=== PATIENT | female | born 1945 | race Caucasian/White ===

== ENCOUNTER 2017-11-13 11:01 | Inpatient (IN) ==
[2017-11-13 12:25] LABS: Basophils # 0.1 10*3/uL (0.0-0.2); Basophils % 0.5 % (0.0-0.8); Eosinophils # 0.3 10*3/uL (0.0-0.87); Eosinophils % 2.3 % (0.00-10.9); Hematocrit 37.9 VOL% (35.7-47.0); Hemoglobin 12.8 GM/DL (12.0-16.0); Immature Granulocytes % 0.4 %; Immature Granulocytes Absolute 0.04 #; Lymphocytes # 1.9 10*3/uL (1.4-4.0); Lymphocytes % 17.7 % (21.3-54.2); Mean Corpuscular HGB Conc 33.8 GM/DL (32-36); Mean Corpuscular Hemoglobin 31 PG (27-34); Mean Corpuscular Volume 92.2 FL (87-102); Monocytes # 1.1 10*3/uL (0.11-0.8); Monocytes % 10.7 % (1.7-12.7); Neutrophils # 7.3 10*3/uL (1.4-7.4); Neutrophils % 68.4 % (38.7-73.9); Platelet Count 431 T/CUMM (130-400); Red Blood Count 4.11 MC/CUMM (3.8-5.5); Red Cell Distribution Width 13.2 % (9.3-17.3); White Blood Count 10.7 T/CUMM (4-12)
[2017-11-13 12:48] LABS: Albumin 2.7 G/DL (3.4-5.0); Bilirubin,Total 0.6 MG/DL (0.2-1.0); CKMB % 2.9 %; Calcium 8.6 MG/DL (8.5-10.1); Potassium 4.2 MMOL/L (3.5-5.1); Total Protein 6.1 G/DL (6.4-8.3)
[2017-11-13 13:05] LABS: Apearance,Urine CLOUDY (Clear); Bacteria,Urine Many /HPF (Few); Bilirubin,Urine Negative (Negative); Blood, Urine Small mg/dL (Negative); Glucose,Urine (UA) Negative (Negative); Hyaline Casts,Urine 18 /LPF (0-3); Ketones,Urine Negative (Negative); Mucus,Urine Many /LPF (Occasional); Nitrite,Urine Positive (Negative); Protein,Urine 30 MG/DL; RBC,Urine 17 /HPF (0-4); Squamous Epithelial Cell,Urine Occasional /HPF (0-10); Urine Color Yellow (Yellow); WBC,Urine 116 /HPF (0-6)
[2017-11-13] MEDS ORDERED: LEVOFLOXACIN INJ 750 MG in PREMIX 1 EACH IV STA (13:09)
[2017-11-13] MEDS ORDERED: NICOTINE 21 MG/24 HR PATCH TRANSDERM PRN (14:36)
[2017-11-13] MEDS ORDERED: hydrALAZINE 20 MG/1 ML VIAL IV PRN (14:38)
[2017-11-13 14:55] LABS: Risk Ratio 3.25; VLDL CHOLESTEROL 22.8 MG/DL
[2017-11-13] MEDS: LEVOFLOXACIN INJ 500 MG in PREMIX 1 EACH IV SCH (17:17)
[2017-11-13] MEDS: SODIUM CHLORIDE 0.45% 1,000 ML IV SCH (17:18)
[2017-11-13] MEDS: ENOXAPARIN 40 MG/0.4 ML SYRINGE SUBCUT SCH (17:21)
[2017-11-13] MEDS: ALBUTEROL/IPRATROPIUM 3 ML NEB RESP TX SCH (20:43)
[2017-11-14] MEDS: ALBUTEROL/IPRATROPIUM 3 ML NEB RESP TX SCH ×4 (00:37→12:10)
[2017-11-14 06:21] LABS: Basophils % 0.4 % (0.0-0.8); Eosinophils # 0.2 10*3/uL (0.0-0.87); Eosinophils % 1.8 % (0.00-10.9); Hematocrit 34.7 VOL% (35.7-47.0); Hemoglobin 11.6 GM/DL (12.0-16.0); Immature Granulocytes % 0.4 %; Immature Granulocytes Absolute 0.04 #; Lymphocytes # 2.2 10*3/uL (1.4-4.0); Lymphocytes % 20.3 % (21.3-54.2); Mean Corpuscular HGB Conc 33.4 GM/DL (32-36); Mean Corpuscular Hemoglobin 31 PG (27-34); Mean Corpuscular Volume 92.3 FL (87-102); Mean Platelet Volume 10.6 FL (9.6-12.0); Monocytes # 1.3 10*3/uL (0.11-0.8); Monocytes % 12.5 % (1.7-12.7); Neutrophils # 6.9 10*3/uL (1.4-7.4); Neutrophils % 64.6 % (38.7-73.9); Platelet Count 399 T/CUMM (130-400); Red Blood Count 3.76 MC/CUMM (3.8-5.5); Red Cell Distribution Width 13.3 % (9.3-17.3); White Blood Count 10.7 T/CUMM (4-12)
[2017-11-14 06:54] LABS: Albumin 2.4 G/DL (3.4-5.0); Bilirubin,Total 0.8 MG/DL (0.2-1.0); Calcium 9.1 MG/DL (8.5-10.1); Osmolality,Calculated 283.3 MOS/KG (273-304); Potassium 3.5 MMOL/L (3.5-5.1); Total Protein 6.5 G/DL (6.4-8.3)
[2017-11-14] MEDS ORDERED: amLODIPine 5 MG TABLET PO SCH (09:00)
[2017-11-14] MEDS ORDERED: LORazepam 2 MG/1 ML VIAL IV ONE ×2 (12:05→13:00)
[2017-11-14] MEDS ORDERED: diphenhydrAMINE 50 MG/1 ML VIAL IV ONE (12:06)
[2017-11-14] MEDS: LEVOFLOXACIN INJ 500 MG in PREMIX 1 EACH IV SCH (14:19)
[2017-11-14] MEDS: amLODIPine 5 MG TABLET PO SCH (14:19)
[2017-11-14] MEDS: LORazepam 2 MG/1 ML VIAL IV PRN (15:19)
[2017-11-14] MEDS: ENOXAPARIN 40 MG/0.4 ML SYRINGE SUBCUT SCH (18:03)
[2017-11-14] MEDS: ROSUVASTATIN 10 MG TABLET PO SCH (21:08)
[2017-11-15] MEDS: SODIUM CHLORIDE 0.45% 1,000 ML IV SCH ×2 (01:18→04:00)
[2017-11-15 05:50] LABS: Basophils % 0.4 % (0.0-0.8); Eosinophils # 0.2 10*3/uL (0.0-0.87); Eosinophils % 2.2 % (0.00-10.9); Hematocrit 37.7 VOL% (35.7-47.0); Hemoglobin 12.5 GM/DL (12.0-16.0); Immature Granulocytes % 0.6 %; Immature Granulocytes Absolute 0.05 #; Lymphocytes # 1.8 10*3/uL (1.4-4.0); Lymphocytes % 20.3 % (21.3-54.2); Mean Corpuscular HGB Conc 33.2 GM/DL (32-36); Mean Corpuscular Hemoglobin 31 PG (27-34); Mean Corpuscular Volume 92.2 FL (87-102); Mean Platelet Volume 10.4 FL (9.6-12.0); Monocytes # 1.2 10*3/uL (0.11-0.8); Monocytes % 13.7 % (1.7-12.7); Neutrophils # 5.6 10*3/uL (1.4-7.4); Neutrophils % 62.8 % (38.7-73.9); Platelet Count 391 T/CUMM (130-400); Red Blood Count 4.09 MC/CUMM (3.8-5.5); Red Cell Distribution Width 13.3 % (9.3-17.3); White Blood Count 8.9 T/CUMM (4-12)
[2017-11-15 06:30] LABS: Albumin 2.3 G/DL (3.4-5.0); Bilirubin,Total 1.2 MG/DL (0.2-1.0); Calcium 9.1 MG/DL (8.5-10.1); Osmolality,Calculated 278.4 MOS/KG (273-304); Potassium 3.5 MMOL/L (3.5-5.1); Total Protein 6.3 G/DL (6.4-8.3)
[2017-11-15] MEDS ORDERED: TUBERCULIN SKIN TEST 0.1 ML SYRINGE INTRADERM ONE (08:28)
[2017-11-15] MEDS: amLODIPine 5 MG TABLET PO SCH (08:41)
[2017-11-15] MEDS: ALBUTEROL 2.5 MG/3 ML NEB RESP TX PRN (13:47)
[2017-11-15] MEDS: LEVOFLOXACIN INJ 500 MG in PREMIX 1 EACH IV SCH (14:36)
[2017-11-15] MEDS: ENOXAPARIN 40 MG/0.4 ML SYRINGE SUBCUT SCH (14:37)
[2017-11-15] MEDS: ZINC OXIDE PASTE 113 GM TUBE TOP SCH ×2 (14:37→21:03)
[2017-11-15] MEDS: ROSUVASTATIN 10 MG TABLET PO SCH (21:02)
[2017-11-15] MEDS: LORazepam 2 MG/1 ML VIAL IV PRN (21:04)
[2017-11-16] MEDS: amLODIPine 5 MG TABLET PO SCH (09:23)
[2017-11-16] MEDS: ZINC OXIDE PASTE 113 GM TUBE TOP SCH ×2 (09:23→22:54)
[2017-11-16] MEDS: LEVOFLOXACIN INJ 500 MG in PREMIX 1 EACH IV SCH (12:56)
[2017-11-16] MEDS: ENOXAPARIN 40 MG/0.4 ML SYRINGE SUBCUT SCH (16:04)
[2017-11-16] MEDS: ALBUTEROL 2.5 MG/3 ML NEB RESP TX PRN (19:00)
[2017-11-16] MEDS: ROSUVASTATIN 10 MG TABLET PO SCH (22:55)
[2017-11-16] MEDS: LORazepam 2 MG/1 ML VIAL IV PRN (22:55)
[2017-11-17 05:57] LABS: Basophils # 0.1 10*3/uL (0.0-0.2); Basophils % 0.6 % (0.0-0.8); Eosinophils # 0.3 10*3/uL (0.0-0.87); Eosinophils % 2.7 % (0.00-10.9); Hematocrit 36.7 VOL% (35.7-47.0); Hemoglobin 12.2 GM/DL (12.0-16.0); Immature Granulocytes % 0.6 %; Immature Granulocytes Absolute 0.07 #; Lymphocytes # 2.3 10*3/uL (1.4-4.0); Lymphocytes % 20.3 % (21.3-54.2); Mean Corpuscular HGB Conc 33.2 GM/DL (32-36); Mean Corpuscular Hemoglobin 31 PG (27-34); Mean Corpuscular Volume 93.4 FL (87-102); Mean Platelet Volume 10.6 FL (9.6-12.0); Monocytes # 1.6 10*3/uL (0.11-0.8); Monocytes % 13.6 % (1.7-12.7); Neutrophils # 7.2 10*3/uL (1.4-7.4); Neutrophils % 62.2 % (38.7-73.9); Platelet Count 393 T/CUMM (130-400); Red Blood Count 3.93 MC/CUMM (3.8-5.5); Red Cell Distribution Width 13.2 % (9.3-17.3); White Blood Count 11.5 T/CUMM (4-12)
[2017-11-17 06:23] LABS: Albumin 2.4 G/DL (3.4-5.0); Bilirubin,Total 0.5 MG/DL (0.2-1.0); Calcium 9.2 MG/DL (8.5-10.1); Osmolality,Calculated 278.4 MOS/KG (273-304); Potassium 3.4 MMOL/L (3.5-5.1); Total Protein 6.6 G/DL (6.4-8.3)
[2017-11-17] MEDS: amLODIPine 5 MG TABLET PO SCH (09:14)
[2017-11-17] MEDS ORDERED: POTASSIUM CHLORIDE RIDER 10 MEQ in PREMIX 1 EACH IV PRN (09:42)
[2017-11-17] MEDS: POTASSIUM CHLORIDE 20 MEQ TABLET PO PRN ×3 (11:27→19:18)
[2017-11-17] MEDS: ZINC OXIDE PASTE 113 GM TUBE TOP SCH ×2 (11:27→22:07)
[2017-11-17] MEDS: LEVOFLOXACIN INJ 500 MG in PREMIX 1 EACH IV SCH (12:39)
[2017-11-17] MEDS: ENOXAPARIN 40 MG/0.4 ML SYRINGE SUBCUT SCH (14:42)
[2017-11-17] MEDS: LORazepam 2 MG/1 ML VIAL IV PRN (22:07)
[2017-11-17] MEDS: ROSUVASTATIN 10 MG TABLET PO SCH (22:07)
[2017-11-18 06:10] LABS: Calcium 9.6 MG/DL (8.5-10.1); Osmolality,Calculated 277.7 MOS/KG (273-304); Potassium 4.6 MMOL/L (3.5-5.1)
[2017-11-18] MEDS ORDERED: TUBERCULIN SKIN TEST 0.1 ML SYRINGE INTRADERM ONE (10:00)
[2017-11-18] MEDS: ZINC OXIDE PASTE 113 GM TUBE TOP SCH ×2 (10:17→21:15)
[2017-11-18] MEDS: amLODIPine 5 MG TABLET PO SCH (10:17)
[2017-11-18] MEDS: ENOXAPARIN 40 MG/0.4 ML SYRINGE SUBCUT SCH (14:54)
[2017-11-18] MEDS: LEVOFLOXACIN INJ 500 MG in PREMIX 1 EACH IV SCH (14:54)
[2017-11-18] MEDS: ROSUVASTATIN 10 MG TABLET PO SCH (21:11)
[2017-11-19] MEDS: ZINC OXIDE PASTE 113 GM TUBE TOP SCH (09:49)
[2017-11-19] MEDS: amLODIPine 5 MG TABLET PO SCH (09:49)
[2017-11-19 11:34] VITALS: BP 129/71
== END 2017-11-19 15:10 | DRG 640 ==
LOC: EDUNIT# → EDBD → N.ED 11:01 → N.EDINP 14:00 → SUATTDRO 14:00 → N.2E 15:40
PROVIDERS: ADMIT Internal Medicine Cardiovascular Disease; ATTEND Internal Medicine

== ENCOUNTER 2018-01-25 15:48 | Inpatient (IN) ==
[2018-01-25 16:57] LABS: Basophils # 0.1 10*3/uL (0.0-0.2); Basophils % 0.4 % (0.0-0.8); Eosinophils # 0.2 10*3/uL (0.0-0.87); Eosinophils % 0.9 % (0.00-10.9); Hematocrit 40.5 VOL% (35.7-47.0); Hemoglobin 13.3 GM/DL (12.0-16.0); Immature Granulocytes % 0.5 %; Immature Granulocytes Absolute 0.08 #; Lymphocytes # 2.4 10*3/uL (1.4-4.0); Lymphocytes % 14.7 % (21.3-54.2); Mean Corpuscular HGB Conc 32.8 GM/DL (32-36); Mean Corpuscular Hemoglobin 30 PG (27-34); Mean Corpuscular Volume 92.3 FL (87-102); Mean Platelet Volume 10.5 FL (9.6-12.0); Monocytes # 2.4 10*3/uL (0.11-0.8); Neutrophils # 11.1 10*3/uL (1.4-7.4); Neutrophils % 68.5 % (38.7-73.9); Platelet Count 242 T/CUMM (130-400); Red Blood Count 4.39 MC/CUMM (3.8-5.5); Red Cell Distribution Width 14.7 % (9.3-17.3); White Blood Count 16.2 T/CUMM (4-12)
[2018-01-25 17:04] LABS: Apearance,Urine Slightly Hazy (Clear); Bacteria,Urine Many /HPF (Few); Bilirubin,Urine Negative (Negative); Blood, Urine Moderate mg/dL (Negative); Glucose,Urine (UA) Negative (Negative); Ketones,Urine Negative (Negative); Mucus,Urine Occasional /LPF (Occasional); Nitrite,Urine Positive (Negative); Protein,Urine Negative; RBC,Urine 150 /HPF (0-4); Urine Color Yellow (Yellow); Urine Specific Gravity 1.017 (1.001-1.035); Urine Urobilinogen < 2.0 EU/DL (0.2-1.0); WBC,Urine 189 /HPF (0-6)
[2018-01-25 17:17] LABS: Alanine Aminotransferase 14 U/L (13-56); Albumin 3.1 G/DL (3.4-5.0); Alkaline Phosphatase 89 U/L (45-117); Aspartate Amino Transferase 7 U/L (0-37); Bilirubin,Total < 0.39 MG/DL (0.2-1.0); Blood Urea Nitrogen 34 MG/DL (7-18); Glucose 85 MG/DL (74-106); Osmolality,Calculated 281.7 MOS/KG (273-304); Potassium 4.5 MMOL/L (3.5-5.1); Sodium 138 MMOL/L (136-145); Total Protein 7.5 G/DL (6.4-8.3)
[2018-01-25] MEDS ORDERED: ACETAMINOPHEN 325 MG TABLET PO PRN (19:34)
[2018-01-25] MEDS ORDERED: guaiFENesin/DM ER 600-30 MG TABLET PO PRN (19:34)
[2018-01-25] MEDS ORDERED: DOCUSATE SODIUM 100 MG CAPSULE PO PRN (19:34)
[2018-01-25] MEDS ORDERED: ONDANSETRON 4 MG/2 ML VIAL IV PRN (19:34)
[2018-01-25] MEDS ORDERED: traMADol 50 MG TABLET PO PRN (21:51)
[2018-01-25] MEDS ORDERED: SODIUM CHLORIDE 0.9% 1,000 ML IV SCH (22:00)
[2018-01-25] MEDS: AZITHROMYCIN INJ 500 MG in SODIUM CHLORIDE 0.9% 250 ML IV SCH (22:00)
[2018-01-25] MEDS: ENOXAPARIN 40 MG/0.4 ML SYRINGE SUBCUT SCH (23:58)
[2018-01-26] MEDS: ALBUTEROL/IPRATROPIUM 3 ML NEB RESP TX SCH ×4 (01:15→19:23)
[2018-01-26 05:56] LABS: Basophils % 0.3 % (0.0-0.8); Eosinophils # 0.2 10*3/uL (0.0-0.87); Eosinophils % 2.3 % (0.00-10.9); Hematocrit 36.9 VOL% (35.7-47.0); Hemoglobin 12.1 GM/DL (12.0-16.0); Immature Granulocytes % 0.5 %; Immature Granulocytes Absolute 0.05 #; Lymphocytes # 2.6 10*3/uL (1.4-4.0); Lymphocytes % 24.8 % (21.3-54.2); Mean Corpuscular HGB Conc 32.8 GM/DL (32-36); Mean Corpuscular Hemoglobin 30 PG (27-34); Mean Corpuscular Volume 91.6 FL (87-102); Mean Platelet Volume 10.8 FL (9.6-12.0); Monocytes # 1.4 10*3/uL (0.11-0.8); Monocytes % 13.4 % (1.7-12.7); Neutrophils # 6.1 10*3/uL (1.4-7.4); Neutrophils % 58.7 % (38.7-73.9); Platelet Count 223 T/CUMM (130-400); Red Blood Count 4.03 MC/CUMM (3.8-5.5); Red Cell Distribution Width 14.9 % (9.3-17.3); White Blood Count 10.4 T/CUMM (4-12)
[2018-01-26 06:29] LABS: Calcium 9.1 MG/DL (8.5-10.1); Potassium 4.5 MMOL/L (3.5-5.1)
[2018-01-26] MEDS: NICOTINE 21 MG/24 HR PATCH TRANSDERM SCH (09:36)
[2018-01-26] MEDS: risperiDONE 0.5 MG TABLET PO SCH (09:38)
[2018-01-26] MEDS: MULTIVITAMIN (CENTRUM) TABLET PO SCH (09:38)
[2018-01-26] MEDS: PANTOPRAZOLE 40 MG TABLET PO SCH (09:38)
[2018-01-26] MEDS: amLODIPine 5 MG TABLET PO SCH (09:38)
[2018-01-26] MEDS: ZINC OXIDE PASTE 113 GM TUBE TOP SCH ×2 (10:05→20:30)
[2018-01-26] MEDS ORDERED: DEXTROSE 50% 25 GM/50 ML VIAL IV PRN (11:31)
[2018-01-26] MEDS ORDERED: GLUCAGON 1 MG VIAL IM PRN (11:31)
[2018-01-26] MEDS: INSULIN LISPRO 100 UNIT/ML SUBCUT SCH ×2 (18:00→20:44)
[2018-01-26] MEDS: MIRTAZAPINE 30 MG TABLET PO SCH (20:26)
[2018-01-26] MEDS: ATORVASTATIN 20 MG TABLET PO SCH (20:29)
[2018-01-26] MEDS: DIVALPROEX ER 500 MG TABLET PO SCH (20:29)
[2018-01-26] MEDS: ENOXAPARIN 40 MG/0.4 ML SYRINGE SUBCUT SCH (20:31)
[2018-01-26] MEDS: cefTRIAXone 2,000 MG in SYRINGE 1 EACH IV SCH ×2 (20:36)
[2018-01-26] MEDS: ZIPRASIDONE 20 MG/1 ML VIAL IM PRN (20:37)
[2018-01-26] MEDS: AZITHROMYCIN INJ 500 MG in SODIUM CHLORIDE 0.9% 250 ML IV SCH (20:47)
[2018-01-27] MEDS: ALBUTEROL/IPRATROPIUM 3 ML NEB RESP TX SCH ×4 (01:45→19:12)
[2018-01-27 07:20] LABS: Basophils # 0.1 10*3/uL (0.0-0.2); Basophils % 0.4 % (0.0-0.8); Eosinophils # 0.4 10*3/uL (0.0-0.87); Eosinophils % 3.3 % (0.00-10.9); Hematocrit 34.4 VOL% (35.7-47.0); Hemoglobin 11.2 GM/DL (12.0-16.0); Immature Granulocytes % 0.4 %; Immature Granulocytes Absolute 0.05 #; Lymphocytes # 2.3 10*3/uL (1.4-4.0); Lymphocytes % 20.5 % (21.3-54.2); Mean Corpuscular HGB Conc 32.6 GM/DL (32-36); Mean Corpuscular Hemoglobin 30 PG (27-34); Mean Corpuscular Volume 93.5 FL (87-102); Mean Platelet Volume 11.1 FL (9.6-12.0); Monocytes # 1.5 10*3/uL (0.11-0.8); Monocytes % 12.9 % (1.7-12.7); Neutrophils # 7.1 10*3/uL (1.4-7.4); Neutrophils % 62.5 % (38.7-73.9); Platelet Count 205 T/CUMM (130-400); Red Blood Count 3.68 MC/CUMM (3.8-5.5); Red Cell Distribution Width 15.1 % (9.3-17.3); White Blood Count 11.4 T/CUMM (4-12)
[2018-01-27 07:50] LABS: Calcium 8.9 MG/DL (8.5-10.1); Osmolality,Calculated 289.8 MOS/KG (273-304); Potassium 4.4 MMOL/L (3.5-5.1)
[2018-01-27] MEDS: MULTIVITAMIN (CENTRUM) TABLET PO SCH (09:36)
[2018-01-27] MEDS: amLODIPine 5 MG TABLET PO SCH (09:36)
[2018-01-27] MEDS: PANTOPRAZOLE 40 MG TABLET PO SCH (09:36)
[2018-01-27] MEDS: risperiDONE 0.5 MG TABLET PO SCH (09:36)
[2018-01-27] MEDS: NICOTINE 21 MG/24 HR PATCH TRANSDERM SCH (09:38)
[2018-01-27] MEDS: ZINC OXIDE PASTE 113 GM TUBE TOP SCH (09:39)
[2018-01-27] MEDS: INSULIN LISPRO 100 UNIT/ML SUBCUT SCH ×4 (09:41→20:38)
[2018-01-27] MEDS: ZIPRASIDONE 20 MG/1 ML VIAL IM PRN (13:52)
[2018-01-27] MEDS: ATORVASTATIN 20 MG TABLET PO SCH (20:25)
[2018-01-27] MEDS: MIRTAZAPINE 30 MG TABLET PO SCH (20:25)
[2018-01-27] MEDS: ENOXAPARIN 40 MG/0.4 ML SYRINGE SUBCUT SCH (20:26)
[2018-01-27] MEDS: DIVALPROEX ER 500 MG TABLET PO SCH (20:26)
[2018-01-27] MEDS: cefTRIAXone 2,000 MG in SYRINGE 1 EACH IV SCH (20:34)
[2018-01-27] MEDS: AZITHROMYCIN INJ 500 MG in SODIUM CHLORIDE 0.9% 250 ML IV SCH (21:50)
[2018-01-28] MEDS: ALBUTEROL/IPRATROPIUM 3 ML NEB RESP TX SCH ×3 (00:19→13:35)
[2018-01-28] MEDS: ZINC OXIDE PASTE 113 GM TUBE TOP SCH ×2 (01:18→09:15)
[2018-01-28] MEDS: INSULIN LISPRO 100 UNIT/ML SUBCUT SCH ×2 (07:56→11:58)
[2018-01-28] MEDS: MULTIVITAMIN (CENTRUM) TABLET PO SCH (09:14)
[2018-01-28] MEDS: risperiDONE 0.5 MG TABLET PO SCH (09:14)
[2018-01-28] MEDS: PANTOPRAZOLE 40 MG TABLET PO SCH (09:14)
[2018-01-28] MEDS: amLODIPine 5 MG TABLET PO SCH (09:14)
[2018-01-28] MEDS: ZIPRASIDONE 20 MG/1 ML VIAL IM PRN (09:15)
[2018-01-28] MEDS: NICOTINE 21 MG/24 HR PATCH TRANSDERM SCH (09:15)
[2018-01-28 13:24] VITALS: BP 107/54
[2018-01-28] MEDS ORDERED: ZINC OXIDE PASTE 113 GM TUBE TOP PRN (14:43)
== END 2018-01-28 15:15 | DRG 689 ==
LOC: EDUNIT# → EDBD → N.ED 15:48 → SUATTDRO 19:34 → N.EDINP 19:34 → N.5E 20:33
PROVIDERS: ADMIT Hospitalist; ATTEND Internal Medicine